=== PATIENT | male | born 1980 | race Caucasian/White ===

== ENCOUNTER 2019-02-01 01:43 | Observation (INO) | payer OTHER ==
[~2019-02-01] VITALS: Ht 175.3 cm; Wt 111.9 kg
[2019-02-01] MEDS ORDERED: LISI10TA4 PO ×2 (01:47→06:04)
[2019-02-01] MEDS ORDERED: NEXI1CAP4 PO (01:47)
[2019-02-01 02:08] LABS: BASO # 0.1 10^3/uL (0.0-0.2); BASO % 0.5 % (0.0-1.0); EOS % 0.3 % (0.0-3.0); HEMATOCRIT 49.1 % (42.0-52.0); HEMOGLOBIN 17.6 g/dl (13.5-17.5); LYMPH # 2.1 10^3/uL (1.5-4.5); LYMPH % 18.5 % (24.0-44.0); MEAN CORPUSCULAR HEMOGLOBIN 32.1 pg (27.0-33.0); MEAN CORPUSCULAR HGB CONC 35.8 g/dl (32.0-36.5); MEAN CORPUSCULAR VOLUME 89.4 fl (80.0-96.0); MONO # 0.8 10^3/uL (0.0-0.8); MONO % 7.3 % (0.0-5.0); NEUTROPHILS # 8.3 10^3/uL (1.8-7.7); NEUTROPHILS % 72.8 % (36.0-66.0); PLATELET COUNT, AUTOMATED 184 10^3/uL (150-450); RED BLOOD COUNT 5.49 10^6/uL (4.30-6.10); WHITE BLOOD COUNT 11.4 10^3/uL (4.0-10.0)
[2019-02-01 02:40] LABS: ALBUMIN 4.3 GM/DL (3.2-5.2); ALT/SGPT 276 U/L (12-78); BILIRUBIN,DIRECT 0.2 MG/DL (0.0-0.2); BILIRUBIN,TOTAL 0.7 MG/DL (0.2-1.0); BLOOD UREA NITROGEN 15 MG/DL (7-18); CALCIUM LEVEL 8.9 MG/DL (8.5-10.1); CARBON DIOXIDE LEVEL 26 MEQ/L (21-32); CHLORIDE LEVEL 101 MEQ/L (98-107); CREATININE FOR GFR 1.11 MG/DL (0.70-1.30); GLOMERULAR FILTRATION RATE > 60.0 (>60); GLUCOSE, FASTING 157 MG/DL (70-100); LIPASE 3819 U/L (73-393); SODIUM LEVEL 138 MEQ/L (136-145); TOTAL PROTEIN 7.6 GM/DL (6.4-8.2)
[2019-02-01] MEDS ORDERED: NS 1,000 ML IV ONE (04:00)
[2019-02-01] MEDS ORDERED: ONDANSETRON 4MG/2ML VIAL (J2405) IV ONE ×2 (04:00→05:30)
[2019-02-01] MEDS ORDERED: ISOVUE-370 76% 100ML VIAL (Q9967) As Ordered ONE (04:08)
[2019-02-01] MEDS ORDERED: MORPHINE 4 MG/ML 1ML VIAL/SYRINGE (J2270) IV PRN ×2 (04:15→06:15)
[2019-02-01 04:19] LABS: ETHYL ALCOHOL (ETHANOL) 0.032 % (0.000-0.010)
[2019-02-01] MEDS ORDERED: NS 1,000 ML IV SCH (05:30)
[2019-02-01] MEDS ORDERED: VITMTA PO (06:04)
[2019-02-01] MEDS ORDERED: ARTI99.0 OU (06:04)
[2019-02-01] MEDS ORDERED: NEXI20TA PO (06:04)
[2019-02-01] MEDS: NS 1,000 ML IV SCH ×4 (06:14→21:30)
[2019-02-01] MEDS ORDERED: ACETAMINOPHEN TAB 650MG DOSE (2X325MG) PO PRN (06:15)
[2019-02-01] MEDS ORDERED: PROMETHAZINE INJ 25 MG/ML VIAL (J2550) IV PRN (06:15)
[2019-02-01] MEDS ORDERED: OXAZEPAM 15 MG CAP PO PRN (06:15)
--- NOTE | 2019-02-01 06:19 | REPVR ---
EXAM: CT Abdomen and Pelvis With Contrast EXAM DATE/TIME: 02/01/2019 4:05 AM CLINICAL HISTORY: 38 years old, male; Signs and symptoms; Vomiting; Additional info: Pancreatitis TECHNIQUE: Imaging protocol: Axial computed tomography images of the abdomen and pelvis with intravenous contrast. Coronal and sagittal reformatted images were created and reviewed. Radiation optimization: All CT scans at this facility use at least one of these dose optimization techniques: automated exposure control; mA and/or kV adjustment per patient size (includes targeted exams where dose is matched to clinical indication); or iterative reconstruction. Contrast material: ISO; Contrast volume: 100 ml; Contrast route: AC; COMPARISON: No relevant prior studies available. FINDINGS: Lungs: The visualized portions of the lung bases are normal. ABDOMEN: Liver: There is a diffuse decrease in hepatic parenchymal density, consistent with fatty infiltration. Gallbladder and bile ducts: The gallbladder is normal with no stones or biliary ductal dilation. Pancreas: There is edema of the head and uncinate process of the pancreas with adjacent stranding and a small amount of fluid around the head and uncinate process of the pancreas and the second portion of the duodenum, consistent with acute pancreatitis. No organized fluid collections are identified. The pancreas parenchyma enhances homogeneously. No pancreatic ductal dilation is seen. Spleen: The spleen is normal. Adrenals: The adrenal glands are normal. Kidneys and ureters: The kidneys are normal. There are no ureteral stones or hydronephrosis. Stomach and bowel: The small bowel appears unremarkable. There is no dilation or thickening of the colon. Appendix: A normal appendix is identified. PELVIS: Bladder: The bladder is unremarkable. No stones identified. Reproductive: The prostate gland and seminal vesicles are normal. ABDOMEN and PELVIS: Intraperitoneal space: There is no evidence of free intraperitoneal or pelvic fluid. There is no free intraperitoneal air. Bones/joints: No suspicious osseous lesions. No acute fractures or dislocations. Soft tissues: Unremarkable. Vasculature: The aorta is normal. No aneurysm. Lymph nodes: No lymphadenopathy is seen. IMPRESSION: 1. Edema and a small amount of fluid in and around the head and uncinate process of the pancreas and second portion the duodenum, most consistent with acute pancreatitis. No organized fluid collections identified. 2. Fatty liver. Electronically signed by: Nai Valero On 02/01/2019 06:19:16 AM
--- NOTE | 2019-02-01 06:21 | HPEPDOC ---
General Date of Admission 02/01/19 Chief Complaint The patient is a 38-year-old male admitted with a reason for visit of Vomiting. History of Present Illness 38-year-old male with past medical history of hypertension and GERD presented to the ER with a chief complaint of abdominal pain. The patient states that he has been on a 4 day drinking binge. He notes that he has been drinking anywhere from 8-10 beers daily during this past holiday weekend. He denies any combines of fevers, chills, chest pain, palpitations. He notes that the abdominal pain began yesterday evening around 10 PM. He describes the pain as sharp and located supraumbilically. He rates the pain 10/10 at its worst with radiation around the torso. He reports associated nausea and vomiting, but denies any diarrhea, sick contacts, or recent travel. He states that he had a similar episode 2 years ago when he went on a drinking binge then. He otherwise denies daily alcohol use. In the ER, the patient was noted to have an elevated lipase level. He will be admitted to the hospitalist service for further evaluation and management. Home Medications Scheduled Esomeprazole Magnesium (Nexium 24Hr) 20 Mg Tablet.dr, 20 MG PO DAILY, (Reported) Lisinopril (Lisinopril) 10 Mg Tablet, 10 MG PO DAILY, (Reported) Multivitamins (Thera M Plus Tablet) 1 Each Tablet, 1 TAB PO DAILY, (Reported) Scheduled PRN Polyvinyl Alcohol (Artificial Tears) 15 Ml Drops, 1 DROP OU QID PRN for DRY EYES, (Reported) Allergies Coded Allergies: No Known Allergies (Unverified , 02/01/19) Past Medical History Medical History As noted in HPI. Surgical History Lasik eye surgery Social History * Smoker: current smoker (smokes half a pack a day for the past 5 years) Alcohol: other (patient states that he usually has 1-2 beers a week. However, this past weekend he went on a binge, which he states that he does not do often.) Drugs: denies Review of Systems Other systems 10 point review of systems negative unless otherwise specified in HPI. Physical Examination General Exam: Positive: Alert, Cooperative, Mild Distress (2/2 abd pain) ENT Exam: Positive: Atraumatic; Negative: Mucous membr. moist/pink (dry mucous membranes) Neck Exam: Negative: JVD Chest Exam: Positive: Clear to auscultation, Normal air movement Heart Exam: Positive: Tachycardic, Normal S1, Normal S2 Telemetry: Positive: Sinus Abdomen Exam: Positive: Soft, Tenderness (tenderness to deep palpation in the supraumbilical area, spreading laterally around the torso. No rebound tenderness, guarding, or rigidity noted. No RUQ pain.) Extremity Exam: Negative: Tenderness, Swelling Psych Exam: Positive: Oriented x 3 Vital Signs Vital Signs Date Time Temp Pulse Resp B/P (MAP) Pulse Ox O2 Delivery O2 Flow Rate FiO2 02/01/19 05:23 103 16 95 Room Air 02/01/19 05:15 141/88 (105) 02/01/19 01:43 97.4 Laboratory Data Labs 24H Laboratory Tests 2 02/01/19 01:56: Immature Granulocyte % (Auto) 0.6, White Blood Count 11.4H, Red Blood Count 5.49, Hemoglobin 17.6H, Hematocrit 49.1, Mean Corpuscular Volume 89.4, Mean Corpuscular Hemoglobin 32.1, Mean Corpuscular Hemoglobin Concent 35.8, Red Cell Distribution Width 11.8, Platelet Count 184, Neutrophils (%) (Auto) 72.8H, Lymphocytes (%) (Auto) 18.5L, Monocytes (%) (Auto) 7.3H, Eosinophils (%) (Auto) 0.3, Basophils (%) (Auto) 0.5, Neutrophils # (Auto) 8.3H, Lymphocytes # (Auto) 2.1, Monocytes # (Auto) 0.8, Eosinophils # (Auto) 0.0, Basophils # (Auto) 0.1, Nucleated Red Blood Cells % (auto) 0.0, Urine Color YELLOW, Urine Appearance CLEAR, Urine pH 5.0, Urine Specific Rebecca 1.023, Urine Protein NEGATIVE, Urine Glucose (UA) NEGATIVE, Urine Ketones TRACEH, Urine Blood NEGATIVE, Urine Nitrite NEGATIVE, Urine Bilirubin NEGATIVE, Urine Urobilinogen 0.2, Urine Leukocyte Esterase NEGATIVE, Urine WBC (Auto) 3, Urine RBC (Auto) 2, Urine Hyaline Casts (Auto) 0, Urine Bacteria (Auto) NEGATIVE, Urine Squamous Epithelial Cells 0, Urine Mucus (Auto) SMALL, Urine Sperm (Auto) SMALLH, Anion Gap 11, Glomerular Filtration Rate > 60.0, Calcium Level 8.9, Aspartate Amino Transf (AST/SGOT) 55H, Alanine Aminotransferase (ALT/SGPT) 276H, Alkaline Phosphatase 110, Total Bilirubin 0.7, Direct Bilirubin 0.2, Total Protein 7.6, Albumin 4.3, Albumin/Globulin Ratio 1.30, Lipase 3819H, Ethyl Alcohol Level 0.032H CBC/BMP Laboratory Tests 02/01/19 01:56 Red Blood Count 5.49, Mean Corpuscular Volume 89.4, Mean Corpuscular Hemoglobin 32.1, Mean Corpuscular Hemoglobin Concent 35.8, Red Cell Distribution Width 11.8, Neutrophils (%) (Auto) 72.8 H, Lymphocytes (%) (Auto) 18.5 L, Monocytes (%) (Auto) 7.3 H, Eosinophils (%) (Auto) 0.3, Basophils (%) (Auto) 0.5, Neutrophils # (Auto) 8.3 H, Lymphocytes # (Auto) 2.1, Monocytes # (Auto) 0.8, Eosinophils # (Auto) 0.0, Basophils # (Auto) 0.1 Plan / VTE VTE Prophylaxis Ordered?: Yes Plan Plan Pancreatitis 2/[address] Abd/Pel taken in the ER, however official report pending Lipase level ~3800 We will keep the patient NPO IVF Hydration Analgesic and antiemetic therapy ordered We will continue to monitor the patient on the medical surgical floor. Elevated Transaminases likely 2/2 Above Alk Phos, Bili levels wnl CT Abd/Pel report pending---we will consider U/S Gallbladder, MRCP if there are concerns of biliary ductal dilatation on the CT We will repeat LFTs tomorrow Leukocytosis 2/2 Above Cont mgmt as delineated above GERD IV Protonix HTN Lisinopril held 2/2 NPO status Alcohol Abuse Patient denies regular alcohol abuse, and notes that he usually drinks 1-2 beers weekly We will keep the patient on a CIWA protocol just in case, given his heavy drinking over the last several days Serax prn ordered DVT Prophylaxis Lovenox RODRI AQUINO MD Feb 01, 2019 06:21
[2019-02-01 06:54] LABS: MAGNESIUM LEVEL 2.1 MG/DL (1.8-2.4)
[2019-02-01] MEDS ORDERED: MULTIVITAMINS/MINERALS THERAP 1 TAB PO SCH (09:00)
[2019-02-01] MEDS ORDERED: ENOXAPARIN 40 MG/0.4 ML SYRINGE (J1650) SC SCH (09:00)
[2019-02-01] MEDS ORDERED: PANTOPRAZOLE 40MG INJ (PROTONIX) (C9113) IV SCH (09:00)
[2019-02-01] MEDS: ONDANSETRON 4MG/2ML VIAL (J2405) IV SCH ×4 (09:00→21:31)
[2019-02-01 09:46] VITALS: BP_SYST 156; BP_SYST 162; BP_DIAS 102; BP_DIAS 109
[2019-02-01] MEDS: MORPHINE 4 MG/ML 1ML VIAL/SYRINGE (J2270) IV PRN ×2 (11:11→13:14)
[2019-02-01] MEDS ORDERED: FUROSEMIDE 20 MG/2 ML VIAL (J1940) IV PRN (13:30)
[2019-02-01 14:00] VITALS: BP 160/90
[2019-02-01] MEDS: HYDROMORPHONE HCL 0.5 MG/ 0.5 ML SYRINGE (J1170 PER 1) IV PRN ×3 (15:19→21:32)
[2019-02-01] MEDS ORDERED: METOPROLOL TART 25 MG TABLET PO ONE (18:00)
[2019-02-01 18:14] VITALS: BP 150/90
--- NOTE | 2019-02-01 20:50 | IPNPDOC ---
Date Seen The patient was seen on 02/01/19. Progress Note SUBJECTIVE: Patient with abdominal discomfort and intermittent nausea and vomiting. Patient also noted to have hypertension and tachycardia. Ultimately patient was transferred from the medical surgical floor to PCU for closer monitoring and possible need for IV rate controlling medication. Patient is pain better controlled with Dilaudid. We'll continue to monitor adjust fluid as needed and utilize IV antihypertensive/rate control as needed close monitoring. OBJECTIVE PHYSICAL EXAMINATION: VITAL SIGNS: Please see below GENERAL APPEARANCE: Abdominal discomfort, hypertension HEENT: Normocephalic, PERRLA, Mucous moist, CARDIOVASCULAR: S1,S2, pulse present, regularly, regular, no obvious murmur LUNGS: Equal air entry b/l, no wheezes or crackle ABDOMEN: Soft, BS present, tenderness of the abdomen but no rigidity GENITOURINARY: No Guzman EXTREMITIES: B/L no edema, capillary refill present SKIN: Warm, No fever NEUROLOGICAL: Cranial nerves grossly intact PSYCHIATRIC: Normal mood and affect for current situation LABORATORY DATA, IMAGING STUDIES, MICROBIOLOGY: Please see below. ASSESSMENT AND PLAN: 38-year-old male with past medical history of hypertension and GERD presented to the ER with a chief complaint of abdominal pain. The patient states that he has been on a 4 day drinking binge. He notes that he has been drinking anywhere from 8-10 beers daily during this past holiday weekend. He denies any combines of fevers, chills, chest pain, palpitations. He notes that the abdominal pain began yesterday evening around 10 PM. He describes the pain as sharp and located supraumbilically. He rates the pain 10/10 at its worst with radiation around the torso. He reports associated nausea and vomiting, but denies any diarrhea, sick contacts, or recent travel. He states that he had a similar episode 2 years ago when he went on a drinking binge then. He otherwise denies daily alcohol use. In the ER, the patient was noted to have an elevated lipase level. He will be admitted to the hospitalist service for further evaluation and management. Pancreatitis 2/2 Alcohol Use, second episode of pancreatitis due alcohol use CT Abd/Pel:1. Edema and a small amount of fluid in and around the head and uncinate process of the pancreas and second portion the duodenum, most consistent with acute pancreatitis. No organized fluid collections identified. 2. Fatty liver. Lipase level ~3800 We will keep the patient NPO IVF Hydration Analgesic and antiemetic therapy ordered We will continue to monitor the patient on the medical surgical floor. Tachycardia and hypertension, likely secondary due to problem above -PCU monitoring -Adjustment of fluids, pain medication, IV therapy as needed for blood pressure and rate control Elevated Transaminases likely 2/2 Above Alk Phos, Bili levels wnl CT Abd/Pel: As above hepatitis panel prn us liver for stone or MRCP prn Leukocytosis 2/2 Above Cont mgmt as delineated above GERD IV Protonix HTN Lisinopril held 2/2 NPO status Alcohol Abuse Patient denies regular alcohol abuse, and notes that he usually drinks 1-2 beers weekly We will keep the patient on a CIWA protocol just in case, given his heavy drinking over the last several days Serax prn ordered DVT Prophylaxis Lovenox SC DISPOSITION: [After acute issues resolve]. VS, I&O, 24H, Fishbone Vital Signs/I&O Vital Signs Date Time Temp Pulse Resp B/P (MAP) Pulse Ox O2 Delivery O2 Flow Rate FiO2 02/01/19 18:30 28 02/01/19 18:14 150 150/90 02/01/19 14:00 97.6 92 02/01/19 06:45 Room Air I&O- Last 24 Hours up to 6 AM 02/01/19 06:00 Intake Total 1000 ml Balance 1000 ml Laboratory Data 24H LABS Laboratory Tests 2 02/01/19 01:56: Immature Granulocyte % (Auto) 0.6, White Blood Count 11.4H, Red Blood Count 5.49, Hemoglobin 17.6H, Hematocrit 49.1, Mean Corpuscular Volume 89.4, Mean Corpuscular Hemoglobin 32.1, Mean Corpuscular Hemoglobin Concent 35.8, Red Cell Distribution Width 11.8, Platelet Count 184, Neutrophils (%) (Auto) 72.8H, Lymphocytes (%) (Auto) 18.5L, Monocytes (%) (Auto) 7.3H, Eosinophils (%) (Auto) 0.3, Basophils (%) (Auto) 0.5, Neutrophils # (Auto) 8.3H, Lymphocytes # (Auto) 2.1, Monocytes # (Auto) 0.8, Eosinophils # (Auto) 0.0, Basophils # (Auto) 0.1, Nucleated Red Blood Cells % (auto) 0.0, Urine Color YELLOW, Urine Appearance CLEAR, Urine pH 5.0, Urine Specific Oakley 1.023, Urine Protein NEGATIVE, Urine Glucose (UA) NEGATIVE, Urine Ketones TRACEH, Urine Blood NEGATIVE, Urine Nitrite NEGATIVE, Urine Bilirubin NEGATIVE, Urine Urobilinogen 0.2, Urine Leukocyte Esterase NEGATIVE, Urine WBC (Auto) 3, Urine RBC (Auto) 2, Urine Hyaline Casts (Auto) 0, Urine Bacteria (Auto) NEGATIVE, Urine Squamous Epithelial Cells 0, Urine Mucus (Auto) SMALL, Urine Sperm (Auto) SMALLH, Anion Gap 11, Glomerular Filtration Rate > 60.0, Calcium Level 8.9, Magnesium Level 2.1, Aspartate Amino Transf (AST/SGOT) 55H, Alanine Aminotransferase (ALT/SGPT) 276H, Alkaline Phosphatase 110, Total Bilirubin 0.7, Direct Bilirubin 0.2, Total Protein 7.6, Albumin 4.3, Albumin/Globulin Ratio 1.30, Lipase 3819H, Ethyl Alcohol Level 0.032H 02/01/19 08:56: CBC/BMP Laboratory Tests 02/01/19 01:56 Red Blood Count 5.49, Mean Corpuscular Volume 89.4, Mean Corpuscular Hemoglobin 32.1, Mean Corpuscular Hemoglobin Concent 35.8, Red Cell Distribution Width 11.8, Neutrophils (%) (Auto) 72.8 H, Lymphocytes (%) (Auto) 18.5 L, Monocytes (%) (Auto) 7.3 H, Eosinophils (%) (Auto) 0.3, Basophils (%) (Auto) 0.5, Neutrophils # (Auto) 8.3 H, Lymphocytes # (Auto) 2.1, Monocytes # (Auto) 0.8, Eosinophils # (Auto) 0.0, Basophils # (Auto) 0.1 CHAMP DARNELL MD Feb 01, 2019 20:50
[2019-02-01 20:53] VITALS: BP 124/60
[2019-02-01 21:05] VITALS: BP 124/60
[2019-02-01] MEDS ORDERED: LORazepam 2 MG/ML VIAL (J2060) IM STA (21:36)
[2019-02-01] MEDS ORDERED: LORazepam 2 MG/ML VIAL (J2060) IV STA ×2 (21:53→23:10)
[2019-02-02] VITALS (43 sets, daily range): BP systolic 82–122; BP diastolic 49–92
[2019-02-02] MEDS ORDERED: NS 1,000 ML IV ONE ×4 (00:30→04:45)
[2019-02-02] MEDS ORDERED: HYDROCORTISONE 100 MG/2 ML VIAL (J1720) IV ONE (00:45)
[2019-02-02] MEDS ORDERED: NALOXONE INJ 0.4 MG/1 ML VIAL (J2310) As Ordered ONE (00:48)
[2019-02-02] MEDS ORDERED: NALOXONE INJ 0.4 MG/1 ML VIAL (J2310) IV STA ×3 (00:48→01:12)
[2019-02-02] MEDS ORDERED: ONDANSETRON 4MG/2ML VIAL (J2405) As Ordered ONE (01:21)
[2019-02-02] MEDS ORDERED: ISOVUE-370 76% 100ML VIAL (Q9967) As Ordered ONE (01:21)
[2019-02-02] MEDS ORDERED: ONDANSETRON 4MG/2ML VIAL (J2405) IV ONE (01:30)
[2019-02-02] MEDS: ONDANSETRON 4MG/2ML VIAL (J2405) IV SCH ×2 (01:57→06:00)
[2019-02-02 02:03] LABS: MEAN CORPUSCULAR HGB CONC 33.3 g/dl (32.0-36.5); PLATELET COUNT, AUTOMATED 138 10^3/uL (150-450); RED BLOOD COUNT 5.94 10^6/uL (4.30-6.10); WHITE BLOOD COUNT 17.5 10^3/uL (4.0-10.0)
[2019-02-02] MEDS: NS 1,000 ML IV SCH ×2 (02:03→06:17)
[2019-02-02 02:05] LABS: VENOUS BASE EXCESS -17.5 (-2.0-2.0); VENOUS O2 SATURATION 77.6 % (60.0-80.0); VENOUS PARTIAL PRESSURE CO2 35.7 mmHg (38.0-50.0); VENOUS PARTIAL PRESSURE O2 50.6 mmHg (30.0-50.0); VENOUS PH 7.108 UNITS (7.330-7.430); VENOUS STANDARD HCO3 12.2 MEQ/L; VENOUS TOTAL CO2 12.1 MEQ/L (24.0-28.0)
[2019-02-02 02:29] LABS: LYMPHOCYTES 6 % (16-52); MONOCYTES 2 % (0-8); NEUTROPHILS 91 % (35-75)
[2019-02-02 02:30] LABS: PLATELET ESTIMATE NORMAL (NORMAL)
[2019-02-02 02:38] LABS: ALBUMIN 2.3 GM/DL (3.2-5.2); ALT/SGPT 126 U/L (12-78); BILIRUBIN,TOTAL 1.6 MG/DL (0.2-1.0); BLOOD UREA NITROGEN 25 MG/DL (7-18); CALCIUM LEVEL 6.2 MG/DL (8.5-10.1); CARBON DIOXIDE LEVEL 15 MEQ/L (21-32); CHLORIDE LEVEL 107 MEQ/L (98-107); CPK CREATINE PHOSPHOKINASE 151 U/L (39-308); CREATININE FOR GFR 3.13 MG/DL (0.70-1.30); GLOMERULAR FILTRATION RATE 24.1 (>60); GLUCOSE, FASTING 194 MG/DL (70-100); LIPASE 8381 U/L (73-393); MB/CK RELATIVE INDEX 0.99 (< OR =4); POTASSIUM SERUM 6.2 MEQ/L (3.5-5.1); SODIUM LEVEL 140 MEQ/L (136-145); TROPONIN I < 0.02 NG/ML (< 0.10)
[2019-02-02 02:41] LABS: D-DIMER QUANT > 4000 ng/ml (<500)
--- NOTE | 2019-02-02 03:10 | REPVR ---
EXAM: CT Abdomen With Contrast EXAM DATE/TIME: 02/02/2019 1:03 AM CLINICAL HISTORY: 38 years old, male; Signs and symptoms; Other: Hypotension; Patient HX: Pancreatitis; Additional info: Abd pain, hypotesnion, R/O aaa TECHNIQUE: Imaging protocol: Axial computed tomography images of the abdomen with intravenous contrast. Coronal and sagittal reformatted images were created and reviewed. Radiation optimization: All CT scans at this facility use at least one of these dose optimization techniques: automated exposure control; mA and/or kV adjustment per patient size (includes targeted exams where dose is matched to clinical indication); or iterative reconstruction. Contrast material: ISO; Contrast volume: 100 ml; Contrast route: AC; COMPARISON: CT ABD/PEL W/IV CONTRAST ONLY 02/01/2019 4:08 AM FINDINGS: Liver: Diffuse fatty infiltration of liver. Gallbladder and bile ducts: Sludge in the gallbladder. Pancreas: Extensive inflammation and fluid surrounding the pancreas, posterior stomach, and adjacent duodenum concerning for severe acute pancreatitis with reactive duodenitis and gastritis. Spleen: Normal. No splenomegaly. Adrenals: Normal. No mass. Kidneys and ureters: Normal. No hydronephrosis. Stomach and bowel: Nondistention of the colon throughout its course except sigmoid colon with inflammation and fluid surrounding it likely reactive colitis. Intraperitoneal space: Small amount of free fluid in bilateral paracolic gutters and pelvis. Bones/joints: Unremarkable.No acute fracture. No dislocation. Soft tissues: Unremarkable. Vasculature: Unremarkable. No abdominal aortic aneurysm. Lymph nodes: Unremarkable. No enlarged lymph nodes. Other findings: Minimal contrast is seen in the splenic vein concerning for splenic vein thrombus. Heterogeneous enhancement of the portal vein may represent partial thrombus. IMPRESSION: Extensive inflammation and fluid surrounding the pancreas, posterior stomach, and adjacent duodenum concerning for severe acute pancreatitis with reactive duodenitis and gastritis. No pseudocyst formation. Nondistention of the colon throughout its course except sigmoid colon with inflammation and fluid surrounding it likely reactive colitis. Small amount of free fluid in bilateral paracolic gutters and pelvis. Minimal contrast is seen in the splenic vein concerning for splenic vein thrombus. Heterogeneous enhancement of the portal vein may represent partial thrombus. Electronically signed by: Brittanie Smith On 02/02/2019 03:10:02 AM
--- NOTE | 2019-02-02 03:12 | REPVR ---
EXAM: CT Angiography Chest With Contrast EXAM DATE/TIME: 02/02/2019 1:19 AM CLINICAL HISTORY: 38 years old, male; Signs and symptoms; Shortness of breath and tachypnea; Additional info: SOB, R/O pe TECHNIQUE: Imaging protocol: Axial computed tomographic angiography images of the chest with intravenous contrast using CT angiography protocol. Coronal and sagittal reformatted images were created and reviewed. 3D rendering: MIP reconstructed images were created and reviewed. Radiation optimization: All CT scans at this facility use at least one of these dose optimization techniques: automated exposure control; mA and/or kV adjustment per patient size (includes targeted exams where dose is matched to clinical indication); or iterative reconstruction. Contrast material: ISO; Contrast volume: 100 ml; Contrast route: AC; COMPARISON: CR Chest, 1 view 02/02/2019 12:51 AM FINDINGS: Pulmonary arteries: Normal. No pulmonary emboli. Aorta: Normal. No aortic aneurysm. No aortic dissection. Lungs: Bibasilar atelectasis. Low lung volumes. Mild atelectasis in the anterior left lower lung. Pleural space: Trace left pleural effusion. Heart: Normal. No cardiomegaly. No pericardial effusion. Lymph nodes: Unremarkable. No enlarged lymph nodes. Bones/joints: Unremarkable. No acute fracture. Soft tissues: Unremarkable. IMPRESSION: No acute finding. Areas of atelectasis and trace left pleural effusion. Electronically signed by: Brittanie Smith On 02/02/2019 03:12:11 AM
[2019-02-02] MEDS ORDERED: SODIUM CHLORIDE 0.9% 1000ML IV ONE (03:15)
[2019-02-02 04:33] LABS: LDH LACTATE DEHYDROGENASE 556 U/L (87-241)
[2019-02-02 04:46] LABS: INR 1.49; PROTHROMBIN TIME 18.3 SECONDS (12.1-14.4)
[2019-02-02 04:56] LABS: ABG BASE EXCESS -13.7 (-2.0-2.0); ABG HCO3 10.6 MEQ/L (22.0-26.0); ABG O2 SATURATION 98.4 % (95.0-99.0); ABG PARTIAL PRESSURE O2 127.4 mmHg (75.0-100.0); ABG STANDARD HCO3 14.6 MEQ/L (22.0-26.0); ABG TOTAL CO2 11.3 MEQ/L (22.0-29.0); ABG pH (ARTERIAL) 7.263 UNITS (7.350-7.450)
[2019-02-02] MEDS ORDERED: PHENYLEPHRINE INJ 10MG/ML VIAL (J2370) As Ordered ONE (04:56)
[2019-02-02] MEDS ORDERED: PHENYLEPHRINE HCL INJ 50 MG in D5W 495 ML IV SCH (05:00)
[2019-02-02] MEDS ORDERED: SODIUM BICARBONATE 8.4% INJ 50 ML SYRINGE IV STA (05:00)
--- NOTE | 2019-02-02 05:21 | DS.PDOC ---
Discharge Summary General Date of Admission Feb 01, 2019 at 01:44 Date of Discharge 02/02/2019 Discharge Summary ADMITTING DIAGNOSES: Acute pancreatitis DISCHARGE DIAGNOSES: worsening acute pancreatitis, portal vein and spleenic vein thrombosis, hypotension COMPLICATIONS/CHIEF COMPLAINT: Acute Alcoholic Pancreatitis. HISTORY OF PRESENT ILLNESS: 38-year-old male with past medical history of hypertension and GERD presented to the ER with a chief complaint of abdominal pain. The patient states that he has been on a 4 day drinking binge. He notes that he has been drinking anywhere from 8-10 beers daily during this past holiday weekend. He denies any combines of fevers, chills, chest pain, palpitat ions. He notes that the abdominal pain began yesterday evening around 10 PM. He describes the pain as sharp and located supraumbilically. He rates the pain 10/10 at its worst with radiation around the torso. He reports associated nausea and vomiting, but denies any diarrhea, sick contacts, or recent travel. He states that he had a similar episode 2 years ago when he went on a drinking binge then. He otherwise denies daily alcohol use. In the ER, the patient was noted to have an elevated lipase level. He will be admitted to the hospitalist service for further evaluation and management. HOSPITAL COURSE: Pt was admitted for acute pancreatitis most probably secondary to alcohol abuse. Pt was kept NPO, started on ivf, iv pain meds. At about 9 pm on 02/01/2019 pt was found hypotension. Pt was given 5 liter NS bolus, NS infusion was increased to 250 ml/hr. CT abdomen/pelvis was suggestive of worsening of acute pancreatitis, portal vein and splenic vein thrombus. Labs showed Lactic acid 12.4. Worsening of BUN/Cr. We consulted GI service as per recommendation [facility] mcallister was contacted but there was no bed available. Pt was accepted at [facility] ICU for higher level of care and interventional GI eval. Pt was started on iv pressures after placement of central line by pulmonary service. Pt was seen and examined at bedside before transfer. Pt c/o generalized weakness and mild diffuse abdominal pain. PHYSICAL EXAMINATION ON DISCHARGE: GENERAL: No acute pathology HEENT: moist mucous membrane NECK: supple CARDIOVASCULAR EXAMINATION: Tachycardic RESPIRATORY EXAMINATION: clear to auscultation, no added sounds ABDOMINAL EXAMINATION: No tenderness, normal bowel sounds EXTREMITIES: No pedal edema SKIN: No rash NEUROLOGICAL EXAMINATION: No focal deficit Pt was clinically and vitally stable at the time of transfer. I spent 35 minutes of time in coordinating discharge of this patient Vital Signs/I&Os Vital Signs Date Time Temp Pulse Resp B/P (MAP) Pulse Ox O2 Delivery O2 Flow Rate FiO2 02/02/19 03:40 123 97/52 (67) 95 02/02/19 02:00 98.2 22 6.0 02/01/19 06:45 Room Air I&O- Last 24 Hours up to 6 AM 02/02/19 06:00 Intake Total 2300 ml Output Total 1255 ml Balance 1045 ml Laboratory Data Labs 24H Laboratory Tests 2 02/01/19 08:56: 02/02/19 00:33: Bedside Glucose (Misc Panel) 256H 02/02/19 01:02: 02/02/19 01:52: Nucleated Red Blood Cells % (auto) 0.0, Neutrophils 91H, Band Neutrophils 1, Lymphocytes (Manual) 6L, Monocytes (Manual) 2, Platelet Estimate NORMAL, Prothrombin Time 18.3H, Prothromb Time International Ratio 1.49, D-Dimer, Quantitative > 4000H, Blood Gas Bicarbonate Standard 12.2, Venous Blood pH 7.108L, Venous Blood Partial Pressure CO2 35.7L, Venous Blood Partial Pressure O2 50.6H, Venous Blood Total Carbon Dioxide 12.1L, Venous Blood HCO3 11.0L, Venous Blood Oxygen Saturation 77.6, Venous Blood Base Excess -17.5L, Anion Gap 18H, Glomerular Filtration Rate 24.1L, Lactic Acid Level 12.3*H, Blood Urea Nitrogen 25#H, Creatinine 3.13#H, Sodium Level 140, Potassium Level 6.2*H, Chloride Level 107, Carbon Dioxide Level 15L, Calcium Level 6.2#L, Aspartate Amino Transf (AST/SGOT) 89H, Alanine Aminotransferase (ALT/SGPT) 126H, Lactate Dehydrogenase 556H, Total Creatine Kinase 151, Alkaline Phosphatase 63, Total Bilirubin 1.6#H, Total Protein 5.0#L, Albumin 2.3#L, Creatine Kinase MB 2.0, Creatine Kinase MB Relative Index 0.99, Troponin I < 0.02, Albumin/Globulin Ratio 0.85L, Lipase 8381H, Thyroid Stimulating Hormone (TSH) 5.690H 02/02/19 04:18: Ammonia 40H 02/02/19 04:30: Blood Gas Bicarbonate Standard 14.6L, Arterial Blood pH 7.263L, Arterial Blood Partial Pressure CO2 24.0L, Arterial Blood Partial Pressure O2 127.4H, Arterial Blood Total CO2 11.3L, Arterial Blood HCO3 10.6L, Arterial Blood Base Excess - 13.7L, Arterial Blood Oxygen Saturation 98.4 CBC/BMP Laboratory Tests 02/02/19 01:52 Red Blood Count 5.94, Mean Corpuscular Volume 96.0, Mean Corpuscular Hemoglobin 32.0, Mean Corpuscular Hemoglobin Concent 33.3, Red Cell Distribution Width 12.6, Calcium Level 6.2 #L, Aspartate Amino Transf (AST/SGOT) 89 H, Alanine Aminotransferase (ALT/SGPT) 126 H, Lactate Dehydrogenase 556 H, Total Creatine Kinase 151, Alkaline Phosphatase 63, Total Bilirubin 1.6 #H, Total Protein 5.0 #L, Albumin 2.3 #L FSBS Laboratory Tests Test 02/02/19 00:33 Range/Units Bedside Glucose (Misc Panel) 256 70-105 MG/DL Microbiology Microbiology 02/02/19 Blood Culture, Received Pending 02/02/19 Blood Culture, Received Pending Discharge Medications Scheduled Esomeprazole Magnesium (Nexium 24Hr) 20 Mg Tablet.dr, 20 MG PO DAILY, (Reported) Lisinopril (Lisinopril) 10 Mg Tablet, 10 MG PO DAILY, (Reported) Multivitamins (Thera M Plus Tablet) 1 Each Tablet, 1 TAB PO DAILY, (Reported) Scheduled PRN Polyvinyl Alcohol (Artificial Tears) 15 Ml Drops, 1 DROP OU QID PRN for DRY EYES, (Reported) Allergies Coded Allergies: No Known Allergies (Unverified , 02/01/19) BRIT THOMAS MD Feb 02, 2019 05:21
[2019-02-02 05:23] LABS: MEAN CORPUSCULAR HEMOGLOBIN 31.5 pg (27.0-33.0); MEAN CORPUSCULAR HGB CONC 32.8 g/dl (32.0-36.5); MEAN CORPUSCULAR VOLUME 96.2 fl (80.0-96.0); PLATELET COUNT, AUTOMATED 147 10^3/uL (150-450); RED BLOOD COUNT 6.34 10^6/uL (4.30-6.10); WHITE BLOOD COUNT 18.4 10^3/uL (4.0-10.0)
[2019-02-02] MEDS ORDERED: HumuLIN R (REGULAR) INSULIN (NovoLIN R) **100U/ML** PER UNIT IV STA (06:42)
[2019-02-02] MEDS ORDERED: HumuLIN R (REGULAR) INSULIN (NovoLIN R) **100U/ML** PER UNIT As Ordered ONE (06:44)
[2019-02-02 06:54] LABS: ALBUMIN 2.3 GM/DL (3.2-5.2); BILIRUBIN,TOTAL 1.7 MG/DL (0.2-1.0); CREATININE FOR GFR 2.35 MG/DL (0.70-1.30); GLOMERULAR FILTRATION RATE 33.6 (>60); MAGNESIUM LEVEL 1.4 MG/DL (1.8-2.4); POTASSIUM SERUM 5.3 MEQ/L (3.5-5.1); TOTAL PROTEIN 4.9 GM/DL (6.4-8.2)
--- NOTE | 2019-02-02 08:04 | REP ---
Portable chest x-ray: Single view. History: Line placement. Comparison study: February 02, 2019. Findings: A right internal jugular central venous line is seen terminating in the expected location of the right atrium. There is no evidence of pneumothorax. The lungs are hypoinflated with plate-like atelectasis in both bases essentially unchanged. Heart is not enlarged. No infiltrate is seen. EKG electrodes are noted. Impression: Right central line in place tip in the expected location of the right atrium. No pneumothorax seen. Bibasilar plate-like atelectasis and hypoinflation. Electronically Signed by Tremayne Guidry MD 02/02/2019 07:56 A
--- NOTE | 2019-02-02 08:10 | REP ---
Portable chest x-ray: Single view. History: Hypotensive. Shortness of breath. No comparison radiographs. Findings: The lungs are hypoinflated. There is mild plate-like atelectasis in the left base. No infiltrate is seen. Heart is not enlarged. No bony abnormalities seen. Pulmonary vasculature is not increased. Impression: Low level of inspiration. Plate-like atelectasis left base. Electronically Signed by Tremayne Guidry MD 02/02/2019 08:02 A
[2019-02-02 10:59] LABS: HEPATITIS A ANTIBODY IGM NEGATIVE (NEGATIVE); HEPATITIS B CORE ANTIBODY IGM NEGATIVE (NEGATIVE); HEPATITIS B SURFACE ANTIGEN NEGATIVE (NEGATIVE)
--- NOTE | 2019-02-03 00:36 | ECGEPIP ---
Stationary ECG Study [facility] Test Date: 2019-02-02 Pat Name: JEFFREY VALDEZ Department: Room: [place] [address] Gender: M [employer] Technician: : 1980 Requested By: LAURA RIVERA Order Number: [id number] Reading MD: William Nazario Measurements Intervals [place] Rate: 119 P: 38 [place]: 154 QRS: 89 QRSD: 88 T: 12 QT: 283 QTc: 399 Interpretive Statements SINUS TACHYCARDIA Comparison tracing not on file Electronically Signed On 02-03-2019 0:36:05 EDT by William Nazario
--- NOTE | 2019-02-03 10:21 | RO ---
DATE OF PROCEDURE: 02/02/2019 PREOPERATIVE DIAGNOSIS: Hypotension and need for vasopressor support. POSTOPERATIVE DIAGNOSIS: Hypotension and need for vasopressor support. PROCEDURE: SURGEON: Dominic Stuart MD SUPERVISOR DOCK: ANESTHESIA: PROCEDURE NOTE: Procedure explained and consent obtained. Shafter procedure was followed. The right internal jugular (IJ) was prepped and draped in a sterile fashion. The right IJ was cannulated using ultrasound guidance. A triple lumen catheter was placed by modified Seldinger technique. Line was then sutured in place. All three ports returned blood and flushed easily. Tolerated well. Postprocedure chest x-ray shows the central line in appropriate position. No pneumothorax.
== END 2019-02-02 06:57 | disposition short-term general hospital (02) ==
LOC: M ED 01:43 → M ED INP 01:44 → M MSPAV 09:43 → M PCU 20:57 → M ICU 02-02 01:34
PROVIDERS: ADMIT Internal Medicine; ATTEND Internal Medicine
DX: K85.20 Alcohol induced acute pancreatitis without necrosis or infection (principal); I81 Portal vein thrombosis; I82.890 Acute embolism and thrombosis of other specified veins; I95.9 Hypotension, unspecified; I10 Essential (primary) hypertension; Z79.899 Other long term (current) drug therapy; K21.9 Gastro-esophageal reflux disease without esophagitis; F10.10 Alcohol abuse, uncomplicated; F17.210 Nicotine dependence, cigarettes, uncomplicated
CPT/HCPCS: 36415; 36561; 71045; 71275; 74160; 74177; 80048; 80053; 80076; 81001; 82140; 82550; 82553; 82803; 83605; 83615; 83690; 83735; 84443; 84484; 85025; 85027; 85379; 85610; 86705; 86709; 86803; 87040; 87340; 93005; 96361; 96374; 96375; 96376; 99285; C9113; G0480; J1170; J1650; J1720; J1940; J2060; J2270; J2310; J2370; J2405; Q9967